=== PATIENT | female | born 1965 | race American Indian/Alaskan Native ===

== ENCOUNTER 2017-08-21 22:52 | Emergency (ER) | payer SELFPAY ==
[2017-08-21] MEDS ORDERED: BENADRYL IV ONE (22:58)
[2017-08-21] MEDS ORDERED: PEPCID IV ONE ×2 (22:58→23:02)
[2017-08-21] MEDS ORDERED: BENADRYL ONE (23:02)
--- NOTE | 2017-08-22 02:45 | Emergency Department Report ---
ED Allergic Reaction HPI - General Chief complaint: Allergic Reaction Stated complaint: ITCHING ALL OVER Time Seen by Provider: 08/22/17 02:08 Source: patient Mode of arrival: Ambulatory Limitations: No Limitations - History of Present Illness Initial Comments: 51-year-old female presents with complaint of sudden hives and some eyelid swelling status post eating Pakistani food/takeout food this evening that had shrimp in it. Patient is awake alert and oriented 3 accompanied by at bedside. States that within the last hours she ate Pakistani food and immediately after eating food she developed hives all over her skin and developed some swelling around her eyes. Patient speaking in full sentences no audible wheezing or stridor. No visible significant lip swelling or tongue swelling. 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 Patient denies any chest pain or throat pain or significant shortness of breath. Has not taken any medicines states she came straight to the hospital for evaluation and treatment. MD Complaint: allergic reaction, hives, facial swelling Onset/Timin -: hour(s) Symptoms: rash, itching, facial swelling (patient states she feels some swelling around her eyelids. Patient's agrees to this.) Severity: mild Treatment Prior to Arrival: none Previous Allergy History: none - Related Data Home Medications Medication Instructions Recorded Confirmed Last Taken traMADol [Ultram] 50 mg PO Q6HR PRN 10/25/16 10/25/16 Unknown Previous Rx's Medication Instructions Recorded Last Taken Type Naproxen [Naprosyn TAB] 500 mg PO BID #30 tablet 01/29/14 Unknown Rx Cetirizine HCl [ZyrTEC] 10 mg PO QDAY #30 capsule 08/22/17 Unknown Rx EPINEPHrine [Epipen] 0.3 mg IJ QDAY PRN #1 auto.injct 08/22/17 Unknown Rx Famotidine [Pepcid] 20 mg PO BID PRN #30 tablet 08/22/17 Unknown Rx diphenhydrAMINE [Benadryl CAP] 25 mg PO Q8HR PRN #30 capsule 08/22/17 Unknown Rx predniSONE [Deltasone] 40 mg PO QDAY #10 tab 08/22/17 Unknown Rx Allergies Allergy/AdvReac Type Severity Reaction Status Date / Time No Known Allergies Allergy Verified 08/21/17 22:56 ED Review of Systems ROS: Stated complaint: ITCHING ALL OVER Other details as noted in HPI Constitutional: denies: chills, fever Eyes: denies: eye pain, eye discharge, vision change ENT: as per HPI. denies: ear pain, throat pain Respiratory: denies: cough, shortness of breath, wheezing Cardiovascular: denies: chest pain, palpitations Endocrine: no symptoms reported Gastrointestinal: denies: abdominal pain, nausea, diarrhea Genitourinary: denies: urgency, dysuria, discharge Musculoskeletal: denies: back pain, joint swelling, arthralgia Skin: denies: rash, lesions Neurological: denies: headache, weakness, paresthesias Psychiatric: denies: anxiety, depression Hematological/Lymphatic: denies: easy bleeding, easy bruising ED Past Medical Hx - Past Medical History Hx GERD: Yes Hx Arthritis: Yes - Surgical History Additional Surgical History: right knee surgery in 1993 - Social History Smoking Status: Current Every Day Smoker - Medications Home Medications: Home Medications Medication Instructions Recorded Confirmed Last Taken Type Naproxen [Naprosyn TAB] 500 mg PO BID #30 tablet 01/29/14 10/25/16 Unknown Rx traMADol [Ultram] 50 mg PO Q6HR PRN 10/25/16 10/25/16 Unknown History Cetirizine HCl [ZyrTEC] 10 mg PO QDAY #30 capsule 08/22/17 Unknown Rx EPINEPHrine [Epipen] 0.3 mg IJ QDAY PRN #1 auto.injct 08/22/17 Unknown Rx Famotidine [Pepcid] 20 mg PO BID PRN #30 tablet 08/22/17 Unknown Rx diphenhydrAMINE [Benadryl CAP] 25 mg PO Q8HR PRN #30 capsule 08/22/17 Unknown Rx predniSONE [Deltasone] 40 mg PO QDAY #10 tab 08/22/17 Unknown Rx ED Physical Exam - General Limitations: No Limitations General appearance: alert, in no apparent distress - Head Head exam: Present: atraumatic, normocephalic - Eye Eye exam: Present: normal appearance, PERRL, EOMI - ENT ENT exam: Present: mucous membranes moist - Expanded ENT Exam Expanded Mouth exam: Present: normal external inspection Teeth exam: Present: normal inspection Throat exam: Positive: normal inspection - Neck Neck exam: Present: normal inspection, full ROM - Respiratory Respiratory exam: Present: normal lung sounds bilaterally. Absent: respiratory distress - Cardiovascular Cardiovascular Exam: Present: regular rate, normal rhythm. Absent: systolic murmur, diastolic murmur, rubs, gallop - GI/Abdominal GI/Abdominal exam: Present: soft, normal bowel sounds - Extremities Exam Extremities exam: Present: normal inspection - Back Exam Back exam: Present: normal inspection - Neurological Exam Neurological exam: Present: alert, oriented X3 - Psychiatric Psychiatric exam: Present: normal affect, normal mood - Skin Skin exam: Present: warm, dry, intact, normal color. Absent: rash ED Course Vital Signs 08/21/17 08/21/17 08/21/17 22:56 23:24 23:31 Temperature 97.9 F Pulse Rate 102 H Respiratory 18 Rate Blood Pressure 126/82 113/67 Blood Pressure [Right] O2 Sat by Pulse 96 95 96 Oximetry 08/21/17 08/22/17 08/22/17 23:45 00:00 00:15 Temperature Pulse Rate Respiratory Rate Blood Pressure 117/75 120/71 120/71 Blood Pressure [Right] O2 Sat by Pulse 96 97 93 Oximetry 08/22/17 08/22/17 08/22/17 00:31 00:45 01:00 Temperature Pulse Rate Respiratory Rate Blood Pressure 124/75 128/81 134/81 Blood Pressure [Right] O2 Sat by Pulse 95 97 95 Oximetry 08/22/17 08/22/17 08/22/17 01:15 01:31 01:45 Temperature Pulse Rate Respiratory Rate Blood Pressure 134/81 130/80 121/78 Blood Pressure [Right] O2 Sat by Pulse 89 90 94 Oximetry 08/22/17 08/22/17 08/22/17 02:00 02:15 02:31 Temperature Pulse Rate Respiratory Rate Blood Pressure 136/79 136/79 142/81 Blood Pressure [Right] O2 Sat by Pulse 94 95 93 Oximetry 08/22/17 08/22/17 02:45 03:05 Temperature Pulse Rate 82 Respiratory 16 Rate Blood Pressure 134/78 Blood Pressure 132/78 [Right] O2 Sat by Pulse 94 97 Oximetry ED Medical Decision Making - Medical Decision Making A/P: Allergic reaction, hives 1-patient has now been observed for several hours with significant improvement of her clinical symptoms and almost complete dissipation of hives. Will prescribe patient course of prednisone, Benadryl when necessary, course of Zyrtec, Pepcid when necessary for hives 2-EpiPen when necessary for any angioedema. I educated patient on signs and symptoms of angioedema and anaphylaxis. 3-vital signs stable before discharge 4-I advised patient to refrain from contact with the type of food that she ate this evening. No clinical signs of angioedema tongue swelling no significant lip swelling. significant reduction of patient's symptoms with antihistamines and steroids. patient speaking in full sentences no trismus no stridor no drooling. i gave patient specific instructions to return to the ed [facility] and to use epipen for any emergent tongue swelling significant difficulty breathing or severe allergic reaction. patient has had near complete resolution of hives around face m and is in abdomen. speaking in full sentences no audible wheezing or stridor. it is likely patient's allergic reaction was induced by danish food she states had shrimp in it which she has had allergic reactions to in the past. I referred patient to allergy clinic and advised her to follow up as soon as possible. I also advised her to follow up with her primary care doctor. Critical care attestation.: If time is entered above; I have spent that time in minutes in the direct care of this critically ill patient, excluding procedure time. ED Disposition Clinical Impression: Hives Allergic reaction Qualifiers: Encounter type: initial encounter Qualified Code(s): T78.40XA - Allergy, unspecified, initial encounter Disposition: TO HOME OR SELFCARE Is pt being admited?: No Does the pt Need Aspirin: No Condition: Stable Instructions: Epinephrine (Injection), Urticaria (ED), Food Allergy (ED) Prescriptions: Cetirizine HCl [ZyrTEC] 10 mg PO QDAY #30 capsule diphenhydrAMINE [Benadryl CAP] 25 mg PO Q8HR PRN #30 capsule PRN Reason: Allergic Reaction EPINEPHrine [Epipen] 0.3 mg IJ QDAY PRN #1 auto.injct PRN Reason: Angioedema Famotidine [Pepcid] 20 mg PO BID PRN #30 tablet PRN Reason: Allergic Reaction predniSONE [Deltasone] 40 mg PO QDAY #10 tab Referrals: [facility] [Provider Group] - 3-5 Days Forms: Accompanied Note, Work/School Release Form(ED) Time of Disposition: 02:43
[2017-08-22 03:06] VITALS: BP 132/78
== END 2017-08-22 03:05 | disposition home or self-care (01) ==
LOC: ED 22:52
DX: T78.40XA Allergy, unspecified, initial encounter (principal); L50.9 Urticaria, unspecified; K21.9 Gastro-esophageal reflux disease without esophagitis; M19.90 Unspecified osteoarthritis, unspecified site; F17.200 Nicotine dependence, unspecified, uncomplicated
CPT/HCPCS: 96374; 96375; 99282; J1200; J2930

== ENCOUNTER 2019-01-27 09:36 | Observation (INO) | payer OTHER ==
[2019-01-27] MEDS ORDERED: ASPIRIN PO ONE (10:10)
--- NOTE | 2019-01-27 10:37 | XRay Report ---
AP CHEST: HISTORY: chest pain AP view of the chest demonstrates a normal mediastinal and cardiac contour with clear lungs and normal bony and soft tissue structures. IMPRESSION: Unremarkable AP chest.
[2019-01-27 11:38] LABS: Basophils # (Auto) 0.1 K/mm3 (0.0-0.1); Basophils % (Auto) 0.6 % (0.0-1.8); Eosinophils # (Auto) 0.1 K/mm3 (0.0-0.4); Hemoglobin 14.3 gm/dl (10.1-14.3); Lymphocytes # (Auto) 2.9 K/mm3 (1.2-5.4); Lymphocytes % (Auto) 31.2 % (13.4-35.0); Mean Corpuscular HGB Conc 33 % (30-34); Mean Corpuscular Volume 90 fl (79-97); Monocytes # (Auto) 0.6 K/mm3 (0.0-0.8); Monocytes % (Auto) 6.3 % (0.0-7.3); Platelet Count 308 K/mm3 (140-440); Red Cell Distribution Width 14.9 % (13.2-15.2)
[2019-01-27 11:47] LABS: BUN/Creatinine Ratio 19; Blood Urea Nitrogen 13 mg/dL (7-17); Calcium 8.9 mg/dL (8.4-10.2); Hemolysis Index 5
[2019-01-27 13:57] LABS: INR 0.91 (0.87-1.13)
[2019-01-27 13:58] LABS: Partial Thromboplastin Time 34.1 Sec. (24.2-36.6)
--- NOTE | 2019-01-27 14:22 | Emergency Department Report ---
ED Chest Pain HPI - General Chief Complaint: Chest Pain Stated Complaint: CHEST PAIN/RAPID HEART RATE Time Seen by Provider: 01/27/19 11:13 Source: patient Mode of arrival: Ambulatory Limitations: No Limitations - History of Present Illness Initial Comments: 53-year-old female complains of heaviness in the right and substernal area of her anterior chest. It does not radiate. She states that she has a history of GERD but that this is different. She's had no prior workup for chest pain or hospitalization. She presents with an elevated blood pressure. She states that she does not have diabetes or hyperlipidemia. He has a history of arthritis. S he states that she has had intermittent chest pressure for the last several days. It is sometimes associated with shortness of breath sometimes not. She states the episodes are generally 10 minutes in duration and not necessarily associated with exertion. -: week(s) Onset: during rest Pain Location: substernal, right chest Pain Radiation: none Severity: moderate Quality: heaviness Consistency: intermittent Improves With: nothing Worsens With: nothing re: dyspnea. denies: nausea, vomting, diaphoresis Other Symptoms: denies: cough, fever, syncope Treatments Prior to Arrival: none - Related Data Home Medications Medication Instructions Recorded Confirmed Last Taken traMADol [Ultram] 50 mg PO Q6HR PRN 10/25/16 10/25/16 Unknown Previous Rx's Medication Instructions Recorded Last Taken Type Naproxen [Naprosyn TAB] 500 mg PO BID #30 tablet 01/29/14 Unknown Rx Cetirizine HCl [ZyrTEC] 10 mg PO QDAY #30 capsule 08/22/17 Unknown Rx EPINEPHrine [Epipen] 0.3 mg IJ QDAY PRN #1 auto.injct 08/22/17 Unknown Rx Famotidine [Pepcid] 20 mg PO BID PRN #30 tablet 08/22/17 Unknown Rx diphenhydrAMINE [Benadryl CAP] 25 mg PO Q8HR PRN #30 capsule 08/22/17 Unknown Rx predniSONE [Deltasone] 40 mg PO QDAY #10 tab 08/22/17 Unknown Rx Allergies Allergy/AdvReac Type Severity Reaction Status Date / Time No Known Allergies Allergy Verified 08/21/17 22:56 Heart Score - HEART Score History: Moderately suspicious EKG: Non-specific Age: 45-65 Risk factors: > 3 risk factors or hx of atherosclerotic disease Troponin: < normal limit HEART Score: 5 - Critical Actions Critical Actions: 4-6 pts:12-16.6% risk of adverse cardiac event. Should be admitted ED Review of Systems ROS: Stated complaint: CHEST PAIN/RAPID HEART RATE Other details as noted in HPI Constitutional: denies: chills, fever Eyes: denies: eye pain, eye discharge, vision change ENT: denies: ear pain, throat pain Respiratory: shortness of breath. denies: cough, wheezing Cardiovascular: chest pain. denies: palpitations Endocrine: no symptoms reported Gastrointestinal: denies: abdominal pain, nausea, diarrhea Genitourinary: denies: urgency, dysuria, discharge Musculoskeletal: denies: back pain, joint swelling, arthralgia Skin: denies: rash, lesions Neurological: denies: headache, weakness, paresthesias Psychiatric: denies: anxiety, depression Hematological/Lymphatic: denies: easy bleeding, easy bruising ED Past Medical Hx - Past Medical History Previous Medical History?: Yes Hx GERD: Yes Hx Arthritis: Yes - Surgical History Past Surgical History?: Yes Additional Surgical History: right knee surgery in 1993 - Social History Smoking Status: Current Every Day Smoker Substance Use Type: None - Medications Home Medications: Home Medications Medication Instructions Recorded Confirmed Last Taken Type Naproxen [Naprosyn TAB] 500 mg PO BID #30 tablet 01/29/14 10/25/16 Unknown Rx traMADol [Ultram] 50 mg PO Q6HR PRN 10/25/16 10/25/16 Unknown History Cetirizine HCl [ZyrTEC] 10 mg PO QDAY #30 capsule 08/22/17 Unknown Rx EPINEPHrine [Epipen] 0.3 mg IJ QDAY PRN #1 auto.injct 08/22/17 Unknown Rx Famotidine [Pepcid] 20 mg PO BID PRN #30 tablet 08/22/17 Unknown Rx diphenhydrAMINE [Benadryl CAP] 25 mg PO Q8HR PRN #30 capsule 08/22/17 Unknown Rx predniSONE [Deltasone] 40 mg PO QDAY #10 tab 08/22/17 Unknown Rx ED Physical Exam - General Limitations: No Limitations General appearance: alert, in no apparent distress - Head Head exam: Present: atraumatic, normocephalic - Eye Eye exam: Present: normal appearance. Absent: scleral icterus - ENT ENT exam: Present: mucous membranes moist - Neck Neck exam: Present: normal inspection - Respiratory Respiratory exam: Present: normal lung sounds bilaterally. Absent: respiratory distress - Cardiovascular Cardiovascular Exam: Present: regular rate, normal rhythm. Absent: systolic murmur, diastolic murmur, rubs, gallop - GI/Abdominal GI/Abdominal exam: Present: soft, normal bowel sounds. Absent: distended, tenderness, guarding, rebound, rigid - Extremities Exam Extremities exam: Present: normal inspection - Back Exam Back exam: Present: normal inspection - Neurological Exam Neurological exam: Present: alert, oriented X3, CN II-XII intact. Absent: motor sensory deficit - Psychiatric Psychiatric exam: Present: normal affect, normal mood - Skin Skin exam: Present: warm, dry, intact, normal color. Absent: rash ED Course Vital Signs 01/27/19 01/27/19 01/27/19 10:06 11:13 11:15 Temperature 98.3 F Pulse Rate 88 72 71 Respiratory 16 14 19 Rate Blood Pressure 156/87 156/83 O2 Sat by Pulse 95 99 95 Oximetry 01/27/19 01/27/19 01/27/19 11:27 11:30 11:45 Temperature 97.8 F Pulse Rate 69 81 Respiratory 16 11 L Rate Blood Pressure 149/81 155/81 O2 Sat by Pulse 94 93 Oximetry 01/27/19 01/27/19 01/27/19 12:00 12:15 12:29 Temperature Pulse Rate 72 83 Respiratory 16 16 20 Rate Blood Pressure 162/96 150/80 O2 Sat by Pulse 95 92 100 Oximetry - Reevaluation(s) Reevaluation #1: Patient remained stable and comfortable in the emergency department. Her d- dimer is 299. The chest pain is somewhat atypical. We will proceed with CTA. Patient is admitted by Dr. Day to the hospitalist service further care and evaluation. 01/27/19 14:43 ANTONIO score - Antonio Score Age > 65: (0) No Aspirin use within the Past 7 Days: (0) No 3 or more CAD Risk Factors: (0) No 2 or more Angina events in past 24 hrs: (0) No Known CAD with more than 50% Stenosis: (0) No Elevated Cardiac Markers: (0) No ST Deviation Greater than 0.5mm: (1) Yes ANTONIO Score: 1 ED Medical Decision Making - Lab Data Result diagrams: 01/27/19 11:16 01/27/19 11:16 Laboratory Results - last 24 hr 01/27/19 01/27/19 01/27/19 11:16 11:16 13:30 WBC 9.3 RBC 4.80 Hgb 14.3 Hct 43.0 H MCV 90 MCH 30 MCHC 33 RDW 14.9 Plt Count 308 Lymph % (Auto) 31.2 Quay % (Auto) 6.3 Eos % (Auto) 1.0 Baso % (Auto) 0.6 Lymph # 2.9 Quay # 0.6 Eos # 0.1 Baso # 0.1 Seg Neutrophils % 60.9 Seg Neutrophils # 5.7 PT 12.8 INR 0.91 APTT 34.1 D-Dimer 299.46 H Sodium 140 Potassium 4.4 Chloride 103.0 Carbon Dioxide 27 Anion Gap 14 BUN 13 Creatinine 0.7 Estimated GFR > 60 BUN/Creatinine Ratio 19 Glucose 83 Calcium 8.9 Total Bilirubin AST ALT Alkaline Phosphatase Troponin T < 0.010 Total Protein Albumin Albumin/Globulin Ratio 01/27/19 01/27/19 13:30 13:32 WBC RBC Hgb Hct MCV MCH MCHC RDW Plt Count Lymph % (Auto) Quay % (Auto) Eos % (Auto) Baso % (Auto) Lymph # Quay # Eos # Baso # Seg Neutrophils % Seg Neutrophils # PT INR APTT D-Dimer Sodium Potassium Chloride Carbon Dioxide Anion Gap BUN Creatinine Estimated GFR BUN/Creatinine Ratio Glucose Calcium Total Bilirubin 0.20 AST 14 ALT 9 Alkaline Phosphatase 86 Troponin T < 0.010 Total Protein 6.8 Albumin 3.8 L Albumin/Globulin Ratio 1.3 - EKG Data -: EKG Interpreted by Or EKG shows normal: sinus rhythm Rate: normal - EKG Data Interpretation: other (left axis deviation right and left atrial enlargement, there is mild ST depression noted in V4 through V6. There is substantially poor precordial R-wave progression. Previous zone can be considered/PRWP.) - Radiology Data Radiology results: report reviewed (chest x-ray no acute process) Critical care attestation.: If time is entered above; I have spent that time in minutes in the direct care of this critically ill patient, excluding procedure time. ED Disposition Clinical Impression: Elevated d-dimer Chest pain Qualifiers: Chest pain type: unspecified Qualified Code(s): R07.9 - Chest pain, unspecified Disposition: DC-09 OP ADMIT IP TO THIS HOSP Is pt being admited?: Yes Does the pt Need Aspirin: Yes Condition: Stable Instructions: Chest Pain (ED) Referrals: BEAU HINES MD [Primary Care Provider] - 3-5 Days Time of Disposition: 15:06
[2019-01-27 14:39] LABS: Alanine Aminotransferase 9 units/L (7-56); Albumin 3.8 g/dL (3.9-5)
[2019-01-27 14:40] LABS: Bilirubin,Direct < 0.2 mg/dL (0-0.2)
--- NOTE | 2019-01-27 15:42 | Cat Scan Report ---
CTA CHEST: HISTORY: Right sided chest pain. COMPARISON: none. TECHNIQUE: Helical CT in 1.25mm intervals following IV contrast. Pulmonary embolus protocol. Sagittal and coronal reformatted images. Rotational MIP images. FINDINGS: Contrast bolus is satisfactory. No pulmonary embolus is identified. Thyroid gland: Normal. Tracheobronchial tree: Normal. Esophagus: Normal. Heart: Normal. Pericardium: Normal. Mediastinum: Normal. Lung Ferguson: Normal. Pleural Spaces: Normal. Musculoskeletal: Normal. IMPRESSION: No evidence for pulmonary embolus. Unremarkable CT chest with contrast.
--- NOTE | 2019-01-27 19:38 | History and Physical Report ---
History of Present Illness Date of examination: 01/27/19 Date of admission: 01/27/2019 Chief complaint: Chest pain for 1 week History of present illness: 53-year-old female with history of gastroesophageal disease, allergy rhinitis and arthritis, status post left TKA comes in for chest pain of one-day duration. Chest pain his left precordial region and substernal region. Nonradiating. Intermittent in nature. Sometimes associated with palpitations. No exacerba ting or relieving factors. No diaphoresis. These episodes last about 10 minutes. No recent travel. No fever or chills. Past Medical History Previous Medical History?: Yes Hx GERD: Yes Hx Arthritis: Yes Surgical History Past Surgical History?: Yes Additional Surgical History: Left knee surgery in 1993--TKA Social History Smoking Status: Current Every Day Smoker--one fourth pack a day Substance Use Type: None - Review of Systems ROS: Stated complaint: CHEST PAIN/RAPID HEART RATE Other details as noted in HPI Constitutional: denies: chills, fever Eyes: denies: eye pain, eye discharge, vision change ENT: denies: ear pain, throat pain Respiratory: shortness of breath. denies: cough, wheezing Cardiovascular: chest pain. denies: palpitations Endocrine: no symptoms reported Gastrointestinal: denies: abdominal pain, nausea, diarrhea Genitourinary: denies: urgency, dysuria, discharge Musculoskeletal: denies: back pain, joint swelling, arthralgia Skin: denies: rash, lesions Neurological: denies: headache, weakness, paresthesias Psychiatric: denies: anxiety, depression Hematological/Lymphatic: denies: easy bleeding, easy bruising Medications and Allergies Allergies Allergy/AdvReac Type Severity Reaction Status Date / Time No Known Allergies Allergy Verified 08/21/17 22:56 Home Medications Medication Instructions Recorded Confirmed Last Taken Type Naproxen [Naprosyn TAB] 500 mg PO BID #30 tablet 01/29/14 10/25/16 Unknown Rx traMADol [Ultram] 50 mg PO Q6HR PRN 10/25/16 10/25/16 Unknown History Cetirizine HCl [ZyrTEC] 10 mg PO QDAY #30 capsule 08/22/17 Unknown Rx EPINEPHrine [Epipen] 0.3 mg IJ QDAY PRN #1 auto.injct 08/22/17 Unknown Rx Famotidine [Pepcid] 20 mg PO BID PRN #30 tablet 08/22/17 Unknown Rx diphenhydrAMINE [Benadryl CAP] 25 mg PO Q8HR PRN #30 capsule 08/22/17 Unknown Rx predniSONE [Deltasone] 40 mg PO QDAY #10 tab 08/22/17 Unknown Rx Exam - Physical Exam Narrative exam: Middle-aged female lying in bed comfortably - Constitutional Vitals: Temp Pulse Resp BP Pulse Ox 97.8 F 86 22 139/119 96 01/27/19 11:27 01/27/19 15:00 01/27/19 15:00 01/27/19 16:45 01/27/19 16:45 General appearance: Present: no acute distress, well-nourished - EENT Eyes: Present: PERRL ENT: hearing intact, clear oral mucosa - Neck Neck: Present: supple, normal ROM - Respiratory Respiratory effort: normal Respiratory: bilateral: CTA - Cardiovascular Heart rate: 86 Rhythm: regular Heart Sounds: Present: S1 & S2. Absent: rub, click - Extremities Extremities: no ischemia, pulses intact, pulses symmetrical, No edema Peripheral Pulses: within normal limits - Abdominal General gastrointestinal: Present: soft, non-tender, non-distended, normal bowel sounds Female genitourinary: Present: normal - Integumentary Integumentary: Present: clear, warm, dry - Musculoskeletal Musculoskeletal: gait normal, strength equal bilaterally - Psychiatric Psychiatric: appropriate mood/affect, intact judgment & insight - Neurologic Neurologic: CNII-XII intact, moves all extremities - Allied Health Allied health notes reviewed: nursing, case management Results - Labs CBC & Chem 7: 01/27/19 11:16 01/27/19 11:16 Labs: Laboratory Last Values WBC 9.3 K/mm3 (4.5-11.0) 01/27/19 11:16 RBC 4.80 M/mm3 (3.65-5.03) 01/27/19 11:16 Hgb 14.3 gm/dl (10.1-14.3) 01/27/19 11:16 Hct 43.0 % (30.3-42.9) H 01/27/19 11:16 MCV 90 fl (79-97) 01/27/19 11:16 MCH 30 pg (28-32) 01/27/19 11:16 MCHC 33 % (30-34) 01/27/19 11:16 RDW 14.9 % (13.2-15.2) 01/27/19 11:16 Plt Count 308 K/mm3 (140-440) 01/27/19 11:16 Lymph % (Auto) 31.2 % (13.4-35.0) 01/27/19 11:16 Bennett % (Auto) 6.3 % (0.0-7.3) 01/27/19 11:16 Eos % (Auto) 1.0 % (0.0-4.3) 01/27/19 11:16 Baso % (Auto) 0.6 % (0.0-1.8) 01/27/19 11:16 Lymph # 2.9 K/mm3 (1.2-5.4) 01/27/19 11:16 Bennett # 0.6 K/mm3 (0.0-0.8) 01/27/19 11:16 Eos # 0.1 K/mm3 (0.0-0.4) 01/27/19 11:16 Baso # 0.1 K/mm3 (0.0-0.1) 01/27/19 11:16 Seg Neutrophils % 60.9 % (40.0-70.0) 01/27/19 11:16 Seg Neutrophils # 5.7 K/mm3 (1.8-7.7) 01/27/19 11:16 PT 12.8 Sec. (12.2-14.9) 01/27/19 13:30 INR 0.91 (0.87-1.13) 01/27/19 13:30 APTT 34.1 Sec. (24.2-36.6) 01/27/19 13:30 299.46 ng/mlDDU (0-234) H 01/27/19 13:30 Sodium 140 mmol/L (137-145) 01/27/19 11:16 Potassium 4.4 mmol/L (3.6-5.0) 01/27/19 11:16 Chloride 103.0 mmol/L (98-107) 01/27/19 11:16 Carbon Dioxide 27 mmol/L (22-30) 01/27/19 11:16 14 mmol/L 01/27/19 11:16 BUN 13 mg/dL (7-17) 01/27/19 11:16 0.7 mg/dL (0.7-1.2) 01/27/19 11:16 Estimated GFR > 60 ml/min 01/27/19 11:16 19 % 01/27/19 11:16 Glucose 83 mg/dL (65-100) 01/27/19 11:16 Calcium 8.9 mg/dL (8.4-10.2) 01/27/19 11:16 0.20 mg/dL (0.1-1.2) 01/27/19 13:30 < 0.2 mg/dL (0-0.2) 01/27/19 13:30 0.0 mg/dL 01/27/19 13:30 AST 14 units/L (5-40) 01/27/19 13:30 ALT 9 units/L (7-56) 01/27/19 13:30 86 units/L (35-129) 01/27/19 13:30 < 0.010 ng/mL (0.00-0.029) 01/27/19 15:45 6.8 g/dL (6.3-8.2) 01/27/19 13:30 3.8 g/dL (3.9-5) L 01/27/19 13:30 1.3 % 01/27/19 13:30 Short CBC 01/27/19 Range/Units 11:16 WBC 9.3 (4.5-11.0) K/mm3 Hgb 14.3 (10.1-14.3) gm/dl Hct 43.0 H (30.3-42.9) % Plt Count 308 (140-440) K/mm3 BMP 01/27/19 11:16 Sodium 140 Potassium 4.4 Chloride 103.0 Carbon Dioxide 27 BUN 13 Creatinine 0.7 Glucose 83 Calcium 8.9 Cardiac Enzymes 01/27/19 01/27/19 01/27/19 Range/Units 11:16 13:32 15:45 Troponin T < 0.010 < 0.010 < 0.010 (0.00-0.029) ng/mL Liver Function 01/27/19 Range/Units 13:30 Total Bilirubin 0.20 (0.1-1.2) mg/dL Direct Bilirubin < 0.2 (0-0.2) mg/dL AST 14 (5-40) units/L ALT 9 (7-56) units/L Alkaline Phosphatase 86 (35-129) units/L Albumin 3.8 L (3.9-5) g/dL - Imaging and Cardiology EKG: report reviewed (normal sinus rhythm heart rate of 86/m ventricular premature complexes left atrial enlargement and nonspecific ST-T wave changes) Chest x-ray: report reviewed Imaging and Cardiology: CTA chest IMPRESSION: No evidence for pulmonary embolus. Unremarkable CT chest with contrast. Chest x-ray IMPRESSION: Unremarkable AP chest. Assessment and Plan Advance Directives: Yes (full code) VTE prophylaxis?: Chemical Plan of care discussed with patient/family: Yes - Patient Problems (1) Chest pain Current Visit: Yes Status: Acute Qualifiers: Chest pain type: unspecified Qualified Code(s): R07.9 - Chest pain, unspecified Plan to address problem: Chest pain rule out DC protocol Serial troponins Exercise treadmill/Lexiscan in the morning GERD and costochondritis and differential diagnosis Patient already has GERD and is on famotidine (2) Allergic rhinitis Current Visit: Yes Status: Chronic Qualifiers: Allergic rhinitis trigger: unspecified Plan to address problem: Continue Zyrtec (3) GERD (gastroesophageal reflux disease) Current Visit: Yes Status: Chronic Qualifiers: Esophagitis presence: with esophagitis Qualified Code(s): K21.0 - Gastro- esophageal reflux disease with esophagitis Plan to address problem: Continue famotidine (4) Arthritis Current Visit: Yes Status: Chronic Plan to address problem: Continue tramadol No NSAIDS because of Gerd (5) DVT prophylaxis Current Visit: Yes Status: Acute Plan to address problem: On Lovenox and GI prophylaxis
[2019-01-27] MEDS ORDERED: PEPCID PO PRN (19:42)
[2019-01-27] MEDS ORDERED: TYLENOL PO PRN (19:43)
[2019-01-27] MEDS ORDERED: SODIUM CHLORIDE FLUSH SYRINGE 10 ML IV PRN (19:43)
[2019-01-27] MEDS ORDERED: MORPHINE IV PRN (19:43)
[2019-01-27] MEDS ORDERED: ZOFRAN IV PRN (19:43)
[2019-01-27] MEDS ORDERED: NON-FORMULARY (Cetirizine Hcl [Zyrtec] 10 MG) PO SCH (19:45)
[2019-01-27] MEDS ORDERED: ULTRAM PO PRN (20:16)
[2019-01-27] MEDS: SODIUM CHLORIDE FLUSH SYRINGE 10 ML IV SCH (22:40)
[2019-01-27] MEDS: LOVENOX SUB-Q SCH (22:40)
[2019-01-28 06:30] LABS: Basophils # (Auto) 0.1 K/mm3 (0.0-0.1); Basophils % (Auto) 0.6 % (0.0-1.8); Eosinophils # (Auto) 0.1 K/mm3 (0.0-0.4); Eosinophils % (Auto) 1.5 % (0.0-4.3); Hematocrit 42.5 % (30.3-42.9); Hemoglobin 13.8 gm/dl (10.1-14.3); Lymphocytes # (Auto) 2.9 K/mm3 (1.2-5.4); Lymphocytes % (Auto) 33.5 % (13.4-35.0); Mean Corpuscular HGB Conc 32 % (30-34); Mean Corpuscular Volume 90 fl (79-97); Monocytes # (Auto) 0.6 K/mm3 (0.0-0.8); Monocytes % (Auto) 6.7 % (0.0-7.3); Platelet Count 297 K/mm3 (140-440); Red Blood Count 4.73 M/mm3 (3.65-5.03); Red Cell Distribution Width 14.9 % (13.2-15.2)
[2019-01-28 06:56] LABS: Alanine Aminotransferase 10 units/L (7-56); Albumin 3.8 g/dL (3.9-5); BUN/Creatinine Ratio 20; Blood Urea Nitrogen 14 mg/dL (7-17); Calcium 8.5 mg/dL (8.4-10.2); Hemolysis Index 5
[2019-01-28] MEDS: LOVENOX SUB-Q SCH (10:02)
[2019-01-28] MEDS: CLARITIN PO SCH (10:02)
[2019-01-28] MEDS: SODIUM CHLORIDE FLUSH SYRINGE 10 ML IV SCH (10:04)
--- NOTE | 2019-01-28 11:48 | Consultation ---
History of Present Illness Consult date: 01/28/19 Requesting physician: ANDRADE GHOTRA Consult reason: chest pain History of present illness: The pt is a 53 YO female with a past medical history of SVT, TKR in 2017 (takes 3 Alleve tablets every morning), and tobacco use. She does not regularly see a floorwalker. She presented with complaints of chest pain and intermittent palpitations since Sunday. She describes her chest pain as a midsternal tightness and soreness which is highly reproducible with palpation of the sternum. She denies any SOB, n/v, diaphoresis, dizziness or syncope. Of note, pt was seen in ED in 10/2016 with c/o palpitations. She was found to have SVT and was converted with IV Adenosine. She was discharged in stable condition. She did not follow up with any cardiologists at that time due to lack of insurance. Past History Past Medical History: other (SVT) Past Surgical History: Other (TKR in 2016) Social history: denies: smoking, alcohol abuse, prescription drug abuse Medications and Allergies Allergies Allergy/AdvReac Type Severity Reaction Status Date / Time No Known Allergies Allergy Verified 08/21/17 22:56 Home Medications Medication Instructions Recorded Confirmed Last Taken Type Naproxen [Naprosyn TAB] 500 mg PO BID #30 tablet 01/29/14 10/25/16 Unknown Rx traMADol [Ultram] 50 mg PO Q6HR PRN 10/25/16 10/25/16 Unknown History Cetirizine HCl [ZyrTEC] 10 mg PO QDAY #30 capsule 08/22/17 Unknown Rx EPINEPHrine [Epipen] 0.3 mg IJ QDAY PRN #1 auto.injct 08/22/17 Unknown Rx Famotidine [Pepcid] 20 mg PO BID PRN #30 tablet 08/22/17 Unknown Rx diphenhydrAMINE [Benadryl CAP] 25 mg PO Q8HR PRN #30 capsule 08/22/17 Unknown Rx predniSONE [Deltasone] 40 mg PO QDAY #10 tab 08/22/17 Unknown Rx Naproxen Sodium [Aleve] 220 mg PO BID PRN 01/28/19 01/28/19 Unknown History Active Meds: Active Medications Acetaminophen (Tylenol) 650 mg PO Q4H PRN PRN Reason: Pain MILD(1-3)/Fever >100.5/CLARK Enoxaparin Sodium (Lovenox) 40 mg SUB-Q QDAY [facility] Last Admin: 01/28/19 10:02 Dose: 40 mg Documented by: Famotidine (Pepcid) 20 mg PO BID PRN PRN Reason: Allergic Reaction Loratadine (Claritin) 10 mg PO DAILY [facility] Last Admin: 01/28/19 10:02 Dose: 10 mg Documented by: Morphine Sulfate (Morphine) 2 mg IV Q4H PRN PRN Reason: Pain, Moderate (4-6) Ondansetron HCl (Zofran) 4 mg IV Q8H PRN PRN Reason: Nausea And Vomiting Sodium Chloride (Sodium Chloride Flush Syringe 10 Ml) 10 ml IV BID [facility] Last Admin: 01/28/19 10:04 Dose: 10 ml Documented by: Sodium Chloride (Sodium Chloride Flush Syringe 10 Ml) 10 ml IV PRN PRN PRN Reason: LINE FLUSH Tramadol HCl (Ultram) 50 mg PO Q6H PRN PRN Reason: Pain, Moderate (4-6) Last Admin: 01/28/19 10:02 Dose: 50 mg Documented by: Review of Systems Constitutional: no weight loss, no weight gain, no fever, no chills, no sweats Ears, nose, mouth and throat: no ear pain, no nose pain, no sinus pressure, no sinus pain Cardiovascular: chest pain, palpitations, no orthopnea, no edema, no syncope, no shortness of breath, no dyspnea on exertion, no high blood pressure Respiratory: no cough, no shortness of breath, no dyspnea on exertion, no congestion, no wheezing, no pain on inspiration Gastrointestinal: no abdominal pain, no nausea, no vomiting, no diarrhea, no constipation, no change in bowel habits Genitourinary Female: no pelvic pain, no flank pain, no dysuria, no urinary frequency, no urgency Musculoskeletal: no neck stiffness, no neck pain, no shooting arm pain, no arm numbness/tingling, no low back pain, no shooting leg pain Integumentary: no rash, no pruritis, no redness, no sores, no wounds Neurological: no head injury, no paralysis, no weakness, no parathesias, no numbness, no tingling Psychiatric: no anxiety Endocrine: no cold intolerance, no heat intolerance Hematologic/Lymphatic: no easy bruising, no easy bleeding Allergic/Immunologic: no urticaria, no wheezing Physical Examination Vital Signs Temp Pulse Resp BP Pulse Ox 98.3 F 88 16 156/87 95 01/27/19 10:06 01/27/19 10:06 01/27/19 10:06 01/27/19 10:06 01/27/19 10:06 General appearance: no acute distress HEENT: Positive: PERRL, Normocephaly, Mucus Membranes Moist Neck: Positive: neck supple, trachea midline Cardiac: Positive: Reg Rate and Rhythm, S1/S2 Lungs: Positive: clear to auscultation Neuro: Positive: Grossly Intact Abdomen: Positive: Soft. Negative: Tender Skin: Negative: Rash, Wound Musculoskeletal: No Pain Extremities: Absent: edema Results 01/28/19 05:01/28/19 05:19 Cardiac Enzymes 01/27/19 01/28/19 Range/Units 13:30 05: AST 14 12 (5-40) units/L Coagulation 01/27/19 Range/Units 13:30 PT 12.8 (12.2-14.9) Sec. INR 0.91 (0.87-1.13) APTT 34.1 (24.2-36.6) Sec. CBC 01/27/19 01/28/19 Range/Units 11:16 05:19 WBC 9.3 8.8 (4.5-11.0) K/mm3 RBC 4.80 4.73 (3.65-5.03) M/mm3 Hgb 14.3 13.8 (10.1-14.3) gm/dl Hct 43.0 H 42.5 (30.3-42.9) % Plt Count 308 297 (140-440) K/mm3 Lymph # 2.9 2.9 (1.2-5.4) K/mm3 [place] # 0.6 (0.0-0.8) K/mm3 Eos # 0.1 (0.0-0.4) K/mm3 Baso # 0.1 (0.0-0.1) K/mm3 Comprehensive Metabolic Panel 01/27/19 01/27/19 01/28/19 Range/Units 11:16 13:30 05:19 Sodium 140 143 (137-145) mmol/L Potassium 4.4 4.4 (3.6-5.0) mmol/L Chloride 103.0 106.5 (98-107) mmol/L Carbon Dioxide 27 26 (22-30) mmol/L BUN 13 14 (7-17) mg/dL Creatinine 0.7 0.7 (0.7-1.2) mg/dL Glucose 83 105 H (65-100) mg/dL Calcium 8.9 8.5 (8.4-10.2) mg/dL Direct Bilirubin < 0.2 (0-0.2) mg/dL Indirect Bilirubin 0.0 mg/dL AST 14 12 (5-40) units/L ALT 9 10 (7-56) units/L Alkaline Phosphatase 86 82 (35-129) units/L Total Protein 6.8 6.6 (6.3-8.2) g/dL Albumin 3.8 L 3.8 L (3.9-5) g/dL - Imaging and Cardiology Echo: pending EKG: report reviewed, image reviewed EKG interpretations - Telemetry EKG Rhythm: Sinus Rhythm - EKG Sinus rhythms and dysrhythmias: sinus rhythm Assessment and Plan DDimer elevated - chest CTA negative for PE. AMI ruled out. Chest pain is highly reproducible with palpation of the sternum. Pt was scheduled for stress test today but ate breakfast so will plan to proceed with lexiscan MPI stress test in AM. NPO after MN. F/u echo. The patient has been seen in conjunction with Dr. Perera who agrees with the assessment and plan of care. - Patient Problems (1) Chest pain Current Visit: Yes Status: Acute Qualifiers: Chest pain type: unspecified Qualified Code(s): R07.9 - Chest pain, unspecified (2) Palpitations Current Visit: Yes Status: Acute (3) History of supraventricular tachycardia Current Visit: Yes Status: Chronic (4) Tobacco use Current Visit: Yes Status: Chronic
--- NOTE | 2019-01-28 16:45 | Progress Note ---
Assessment and Plan /Chest pain admitted to rule out PR Serial troponins Exercise treadmill/Lexiscan in the morning GERD and costochondritis and differential diagnosis Patient already has GERD and is on famotidine /Allergic rhinitis Continue Zyrtec /GERD (gastroesophageal reflux disease) Continue famotidine / Arthritis Continue tramadol No NSAIDS because of Gerd / DVT prophylaxis On Lovenox and GI prophylaxis Brief History: 53-year-old female with history of gastroesophageal disease, allergy rhinitis and arthritis, status post left TKA comes in for chest pain of one-day duration. Radiological data: CTA chest IMPRESSION: No evidence for pulmonary embolus. Unremarkable CT chest with contrast. Chest x-ray IMPRESSION: Unremarkable AP chest. Hospitalist Physical exam: GENERAL: well-developed and morbidly obese -[place] female lying on bed appeared to be in no discomfort. HEENT: Normocephalic. Atraumatic. No conjunctival congestion or icterus. Patient has moist mucous membranes. NECK: Supple. Trachea midline. CHEST/LUNGS: Clear to auscultated bilaterally, breathing nonlabored. No wheezes crackles or rhonchi. HEART/CARDIOVASCULAR: Regular in rate and rhythm. S1 and S2 positive. ABDOMEN: Abdomen is soft, nontender. Patient has normal bowel sounds. SKIN: There is no rash. Warm and dry. NEURO: No focal motor deficit. Follows command. MUSCULOSKELETAL: No joint effusion or tenderness. EXTRIMITY: No edema, no cyanosis or clubbing. PSYCH: Cooperative. Subjective Date of service: 01/28/19 Interval history: Patient seen and examined. Medical records and medication list reviewed. No acute event overnight noted by the RN. Patient continued to complain some intermittent chest pain, denies any difficulty breathing. Patient is tolerating diet. Discussed plan of care at bedside with patient. Stress test was canceled today as she ate a breakfast in the morning, reschedule stress test for tomorrow a.m. Objective - Constitutional Vitals: Vital Signs - 12hr 01/28/19 01/28/19 08:44 10:02 Temperature 97.7 F Pulse Rate 76 Respiratory 18 18 Rate Blood Pressure 142/69 O2 Sat by Pulse 91 Oximetry - Labs CBC & Chem 7: 01/28/19 05:19 01/28/19 05:19 Labs: Abnormal lab results 01/28/19 Range/Units 05: Glucose 105 H (65-100) mg/dL Albumin 3.8 L (3.9-5) g/dL
[2019-01-29] MEDS ORDERED: LEXISCAN IV ONE ×2 (08:14→08:16)
--- NOTE | 2019-01-29 10:42 | Progress Note ---
Assessment and Plan S/p lexiscan MPI stress test this AM which was negative. Currently stable cardiac status. Nothing further to add from cardiac perspective at this time. Will sign off. Recommend pt follow up in our office with Dr. Perera within 1-2 weeks of hospital discharge ([phone]). The patient has been seen in conjunction with Dr. Perera who agrees with the assessment and plan of care. - Patient Problems (1) Chest pain Current Visit: Yes Status: Acute Qualifiers: Chest pain type: unspecified Qualified Code(s): R07.9 - Chest pain, unspecified (2) Palpitations Current Visit: Yes Status: Acute (3) History of supraventricular tachycardia Current Visit: Yes Status: Chronic (4) Tobacco use Current Visit: Yes Status: Chronic Subjective Date of service: 01/29/19 Principal diagnosis: cp Interval history: pt for stress test. no current cardiac complaints. Objective Last Vital Signs Temp 98.1 F 01/29/19 04:54 Pulse 62 01/29/19 05:30 Resp 20 01/29/19 04:54 BP 125/51 01/29/19 04:54 Pulse Ox 94 01/29/19 04:54 - Physical Examination General: No Apparent Distress HEENT: Positive: PERRL, Normocephaly, Mucus Membranes Moist Neck: Positive: neck supple, trachea midline Cardiac: Positive: Reg Rate and Rhythm, S1/S2 Lungs: Positive: Decreased Breath Sounds Neuro: Positive: Grossly Intact Abdomen: Positive: Soft. Negative: Tender Skin: Negative: Rash, Wound Musculoskeletal: No Pain Extremities: Absent: edema - Imaging and Cardiology EKG: report reviewed, image reviewed Echo: pending - Telemetry EKG Rhythm: Sinus Rhythm - EKG Sinus rhythms and dysrhythmias: sinus rhythm
[2019-01-29 12:09] VITALS: BP 129/74
[2019-01-29] MEDS: CLARITIN PO SCH (12:12)
[2019-01-29] MEDS: LOVENOX SUB-Q SCH (12:12)
[2019-01-29] MEDS: SODIUM CHLORIDE FLUSH SYRINGE 10 ML IV SCH (12:13)
--- NOTE | 2019-01-29 13:37 | Discharge Summary ---
Providers - Providers Date of Admission: 01/27/19 19:43 Date of discharge: 01/29/19 Attending physician: ANDRADE GHOTRA 01/28/19 10:46 Consult to Physician [CONS] Routine Comment: Consulting Provider: MIKI MAKI Physician Instructions: Reason For Exam: chest pain [facility] Hospital[facility] Condition: Stable Hospital course: Brief History: 53-year-old female with history of gastroesophageal disease, allergy rhinitis and arthritis, status post left TKA comes in for chest pain of one-day duration. Patient was admitted for further evaluation and management. Radiological data: CTA chest IMPRESSION: No evidence for pulmonary embolus. Unremarkable CT chest with contrast. Chest x-ray IMPRESSION: Unremarkable AP chest. Lexiscan MPI test: No reversible ischemia Discharge diagnosis and management: /Atypical Chest pain admitted to rule out MA Monitored with Serial troponins Lexiscan in the morning was negative Likely due to GERD and will place patient on PPI Cardiology cleared the patient for discharge, will continue outpatient follow-up with primary care physician /Allergic rhinitis Continue Zyrtec /GERD (gastroesophageal reflux disease) Continue PPI / Arthritis Continue tramadol No NSAIDS because of Gerd / DVT prophylaxis On Lovenox and GI prophylaxis Hospitalist Physical exam: GENERAL: well-developed and morbidly obese -[place] female lying on bed appeared to be in no discomfort. HEENT: Normocephalic. Atraumatic. No conjunctival congestion or icterus. Patient has moist mucous membranes. NECK: Supple. Trachea midline. CHEST/LUNGS: Clear to auscultated bilaterally, breathing nonlabored. No wheezes crackles or rhonchi. HEART/CARDIOVASCULAR: Regular in rate and rhythm. S1 and S2 positive. ABDOMEN: Abdomen is soft, nontender. Patient has normal bowel sounds. SKIN: There is no rash. Warm and dry. NEURO: No focal motor deficit. Follows command. MUSCULOSKELETAL: No joint effusion or tenderness. EXTRIMITY: No edema, no cyanosis or clubbing. PSYCH: Cooperative. Disposition: DC-01 TO HOME OR SELFCARE Time spent for discharge: 34 minutes Core Measure Documentation - Palliative Care Palliative Care/ Comfort Measures: Not Applicable - Core Measures Any of the following diagnoses?: none Exam - Constitutional Vitals: Temp Pulse Resp BP Pulse Ox 97.9 F 76 20 129/74 94 01/29/19 12:08 01/29/19 12:08 01/29/19 04:54 01/29/19 12:08 01/29/19 04:54 Plan Activity: advance as tolerated Weight Bearing Status: Weight Bear as Tolerated Diet: low fat, low salt Follow up with: BEAU HINES MD [Primary Care Provider] - 3-5 Days NHAN REAVES MD [Staff Physician] - 7 Days Forms: Work/School Release Form Prescriptions: Pantoprazole [Protonix] 40 mg PO QDAY #30 tablet
--- NOTE | 2019-01-30 03:08 | Treadmill Report ---
NUCLEAR PERFUSION STUDY REASON FOR STUDY: Chest pain. IMAGING PROTOCOL: The patient received 10 mCi of Technetium 99m Tetrofosmin for resting image and 28 mCi of Technetium 99m Tetrofosmin for stress imaging. The imaging for the whole procedure was completed 30-90 minutes following the initial injection of Technetium 99m Tetrofosmin. The SPECT imaging in the 180 degree arc was performed in the right anterior oblique projection. Computerized reconstruction of the images was performed for analysis. IMAGING RESULTS: Normal cavity size from stress to rest. Normal distribution of radionuclide in the anterior, inferior, septal, and apical regions. Gated SPECT, EF greater than 65% with no wall motion abnormality. The patient infused Lexiscan with no EKG changes. SUMMARY: 1. Negative Lexiscan EKG. 2. Normal rest and stress myocardial perfusion scan. No significant ischemia. No wall motion abnormality. Gated SPECT, EF greater than 65%. 1. JOB# [id number] OFELIA/NILE
== END 2019-01-29 15:45 | disposition home or self-care (01) ==
LOC: ED 09:36 → 4A 19:43
PROVIDERS: ADMIT Internal Medicine; ATTEND Internal Medicine
DX: R07.89 Other chest pain (principal); J30.9 Allergic rhinitis, unspecified; K21.9 Gastro-esophageal reflux disease without esophagitis; M19.90 Unspecified osteoarthritis, unspecified site; R00.2 Palpitations; F17.210 Nicotine dependence, cigarettes, uncomplicated; Z98.890 Other specified postprocedural states; Z79.899 Other long term (current) drug therapy; Z86.79 Personal history of other diseases of the circulatory system; Z96.652 Presence of left artificial knee joint
CPT/HCPCS: 36415; 71045; 71275; 78452; 80048; 80053; 80076; 83036; 84484; 85025; 85379; 85610; 85730; 93005; 93010; 93017; 93306; 96372; 99284; A9502; G0378; J1650; J2785; Q9967

== ENCOUNTER 2019-10-01 11:22 | Emergency (ER) | payer BC, OTHER ==
[2019-10-01 11:34] VITALS: BP 149/65
--- NOTE | 2019-10-01 11:49 | Emergency Department Report ---
Blank Doc - Documentation Documentation: 53-year-old female that presents with body aches, chest congestion and SOB with cough. This initial assessment/diagnostic orders/clinical plan/treatment(s) is/are subject to change based on patient's health status, clinical progression and re- assessment by fellow clinical providers in the ED. Further treatment and workup at subsequent clinical providers discretion. Patient/guardians urged not to elope from the ED as their condition may be serious if not clinically assessed and managed. Initial orders include: 1- Patient sent to [facility] for further evaluation and treatment 2- CXR
--- NOTE | 2019-10-01 12:31 | XRay Report ---
CHEST 2 VIEWS INDICATION: cough. COMPARISON: 01/27/2019 FINDINGS: Support devices: None. Heart: Within normal limits. Lungs/pleura: No acute air space or interstitial disease. No pneumothorax. Additional findings: None. IMPRESSION: 1. No acute findings. Signer Name: Uri Bermudez MD Signed: 10/01/2019 12:26 PM Workstation Name: [id number]
--- NOTE | 2019-10-01 13:55 | Emergency Department Report ---
Minor Respiratory - HPI Chief Complaint: Upper Respiratory Infection Stated Complaint: CHEST PAIN/NOSE BLEED /BAD COUGH Time Seen by Provider: 10/01/19 11:49 Duration: 5 Days Pain Location: Chest Severity: mild Minor Respiratory: Yes Able to Tolerate Fluids, Yes Cough, No Rhinorrhea, No Sore Throat, No Ear Pain, No Sick Contacts, No Hemoptysis, No Chest Pain, No Shortness of Breath, No Fever Other History: 53 YO COMES TO ER WITH SEVERAL WEEK HX OF COUGH. NO FEVER OR CHILLS. GOT PNA AND FLU SHOT THIS YEAR. SMOKER. WORSE AT HS. DID NOT SEE PCP. HOME MEDS. METOPROLOL. [facility] ED Review of Systems ROS: Stated complaint: CHEST PAIN/NOSE BLEED /BAD COUGH Other details as noted in HPI Comment: All other systems reviewed and negative ED Past Medical Hx - Past Medical History Previous Medical History?: Yes Hx Hypertension: Yes (undiagnosed) Hx GERD: Yes Hx Arthritis: Yes Hx HIV: No - Surgical History Past Surgical History?: Yes Additional Surgical History: right knee surgery in 1993 - Family History Family history: no significant - Social History Smoking Status: Current Every Day Smoker - Medications Home Medications: Home Medications Medication Instructions Recorded Confirmed Last Taken Type Albuterol INH(or & Nicu Only) 2 puff IH QID PRN #1 inhalation 10/01/19 Unknown Rx [ProAir HFA Inhaler] Amoxicillin [Trimox CAP] 500 mg PO BID #20 capsule 10/01/19 Unknown Rx Benzonatate [Tessalon Perles] 100 mg PO Q12H PRN #20 capsule 10/01/19 Unknown Rx Fluticasone [Flonase] 1 spray NS QDAY #1 bottle 10/01/19 Unknown Rx predniSONE [Deltasone] 20 mg PO DAILY #5 tablet 10/01/19 Unknown Rx Minor Respiratory Exam - Exam General: Vital signs noted. No distress. Alert and acting appropriately. HEENT: Yes Moist Mucous Membranes, No Pharyngeal Erythema, No Pharyngeal Exudates, No Rhinorrhea, No Conjuctival Injection, No Frontal Tenderness, No Maxillary Tenderness Ear: Neither TM Bulge, Neither TM Erythema, Neither EAC Pain, Neither EAC Discharge Neck: Yes Supple, No Adenopathy Lungs: Yes Good Air Exchange, Yes Wheezes, No Ronchi, No Stridor, No Cough, No Labored Respirations, No Retractions, No Use of Accessory Muscles, No Other Abnormal Lung Sounds Heart: Yes Regular, No Murmur Abdomen: Yes Normal Bowel Sounds, No Tenderness, No Peritoneal Signs Skin: No Rash, No Edema Neurologic: Alert and oriented, no deficits. Musculoskeletal: Unremarkable. ED Course Vital Signs 10/01/19 11:26 Temperature 98.6 F Pulse Rate 94 H Respiratory 20 Rate Blood Pressure 149/65 O2 Sat by Pulse 92 Oximetry ED Medical Decision Making - Radiology Data Radiology results: report reviewed, image reviewed - Medical Decision Making URI ALSO ON LOSARTAN FOR APPROX 2 M NO FEVER GOT FLU SHOT AND PNA SHOT THIS YEAR FOLLOWS WITH CARDS ON METOP/LOSARTAN SMOKES NOW 4 CIG A DAY XRAY NEG VSS MEDICATED IN ER DC HOME WITH DC POC AND PCP FOLLOW UP Vital Signs 10/01/19 11:26 Temperature 98.6 F Pulse Rate 94 H Respiratory 20 Rate Blood Pressure 149/65 O2 Sat by Pulse 92 Oximetry - Differential Diagnosis URI Critical care attestation.: If time is entered above; I have spent that time in minutes in the direct care of this critically ill patient, excluding procedure time. ED Disposition Clinical Impression: Tobacco use, Cough, Bronchitis Disposition: DC-01 TO HOME OR SELFCARE Is pt being admited?: No Does the pt Need Aspirin: No Condition: Stable Instructions: Acute Bronchitis (ED) Additional Instructions: MEDS ORDERED TODAY FOLLOW UP WITH PCP NEXT WEEK WE DISCUSSED Prescriptions: predniSONE [Deltasone] 20 mg PO DAILY #5 tablet Fluticasone [Flonase] 1 spray NS QDAY #1 bottle Albuterol INH(or & Nicu Only) [ProAir HFA Inhaler] 2 puff IH QID PRN #1 inhalation PRN Reason: Shortness Of Breath Benzonatate [Tessalon Perles] 100 mg PO Q12H PRN #20 capsule PRN Reason: Cough Amoxicillin [Trimox CAP] 500 mg PO BID #20 capsule Referrals: IDA ELLSWORTH MD [Staff Physician] - 3-5 Days Forms: Work/School Release Form(ED) Time of Disposition: 14:05
[2019-10-01] MEDS ORDERED: predniSONE 20 MG TAB PO ONE (14:02)
[2019-10-01] MEDS ORDERED: ALBUTEROL 2.5 MG/3 ML NEBU IH ONE (14:02)
== END 2019-10-01 15:06 | disposition home or self-care (01) ==
LOC: ED 11:22
DX: J40 Bronchitis, not specified as acute or chronic (principal); I10 Essential (primary) hypertension; K21.9 Gastro-esophageal reflux disease without esophagitis; M19.90 Unspecified osteoarthritis, unspecified site; Z72.0 Tobacco use; Z79.899 Other long term (current) drug therapy
CPT/HCPCS: 71046; 94640; 99283; J7512

== ENCOUNTER 2022-02-06 15:38 | Emergency (ER) | payer BC ==
--- NOTE | 2022-02-06 16:36 | Emergency Department Report ---
<SAMUELNATALIEELIAZAR JaimesJEANNIEPACHECO IDANIA - Last Filed: 02/07/22 01:23> ED Shortness of Breath HPI - General Chief Complaint: High BP Stated Complaint: SHORTNESS OF BREATH, Time Seen by Provider: 02/06/22 15:55 - Related Data Previous Rx's Medication Instructions Recorded Last Taken Type Albuterol Mdi (or & Nicu Only) 2 puff IH QID PRN #1 inhalation 10/01/19 Unknown Rx [ProAir HFA Inhaler] Amoxicillin [Trimox CAP] 500 mg PO BID #20 capsule 10/01/19 Unknown Rx Benzonatate [Tessalon Perles] 100 mg PO Q12H PRN #20 capsule 10/01/19 Unknown Rx Fluticasone [Flonase] 1 spray NS QDAY #1 bottle 10/01/19 Unknown Rx Pantoprazole [Protonix TAB] 20 mg PO QDAY #30 tablet. 10/01/19 Unknown Rx predniSONE [Deltasone] 20 mg PO DAILY #5 tablet 10/01/19 Unknown Rx Allergies Allergy/AdvReac Type Severity Reaction Status Date / Time No Known Allergies Allergy Verified 02/06/22 15:41 ED Past Medical Hx - Medications Home Medications: Home Medications Medication Instructions Recorded Confirmed Last Taken Type Albuterol Mdi (or & Nicu Only) 2 puff IH QID PRN #1 inhalation 10/01/19 Unknown Rx [ProAir HFA Inhaler] Amoxicillin [Trimox CAP] 500 mg PO BID #20 capsule 10/01/19 Unknown Rx Benzonatate [Tessalon Perles] 100 mg PO Q12H PRN #20 capsule 10/01/19 Unknown Rx Fluticasone [Flonase] 1 spray NS QDAY #1 bottle 10/01/19 Unknown Rx Pantoprazole [Protonix TAB] 20 mg PO QDAY #30 tablet. 10/01/19 Unknown Rx predniSONE [Deltasone] 20 mg PO DAILY #5 tablet 10/01/19 Unknown Rx ED Course - Reevaluation(s) Reevaluation #1: 02/07/22 01:23 I was to follow up on CTA chest ordered due to elevated d-dimer -- but resulted with no acute findings-- negative for PE -- pt is reassured and d/c home ED Medical Decision Making - Lab Data Result diagrams: 02/06/22 16:37 02/06/22 18:28 ED Disposition Clinical Impression: SOB (shortness of breath) Disposition: 01 HOME / SELF CARE / HOMELESS Is pt being admited?: No Does the pt Need Aspirin: No Condition: Stable Instructions: Shortness of Breath, Adult, [id number] Additional Instructions: Continue your chronic medication as prescribed by your primary doctor Call and schedule follow-up with your doctor in the next 3 to 5 days for progress Please do not hesitate to call or return to emergency room if your symptoms worsen Referrals: NEHA SILVA MD [Primary Care Provider] - 3-5 Days Time of Disposition: 01:25 <MILAD FISCHER - Last Filed: 02/07/22 11:01> ED Shortness of Breath HPI - General Source: patient Mode of arrival: Wheelchair Limitations: No Limitations - History of Present Illness Initial Comments: Patient is a 56-year-old female presenting with complaint of shortness of breath and central chest discomfort. She presented to the outpatient check-in experiencing severe symptoms for which a CODE BLUE was called. Arrived to find the patient sitting in a chair awake however in severe distress. She was transported promptly to the emergency department for further evaluation. On further history she reports seeing her PCP on Sunday for bilateral sciatic pain. States after her visit she noticed swelling in both of her legs at home. She attempted to elevate her legs which did result in decreased swelling however states the swelling returned while at work today. She reports associated orthopnea and dyspnea on exertion that have worsened since Sunday. She denies history of CHF or CAD. Her chest discomfort is described as a pressure-like sensation in the center of her chest that is nonradiating and exacerbated with inhalation. ED Review of Systems ROS: Stated complaint: SHORTNESS OF BREATH, Other details as noted in HPI Comment: All other systems reviewed and negative Constitutional: denies: chills, fever Respiratory: orthopnea, shortness of breath. denies: cough, wheezing Cardiovascular: chest pain, dyspnea on exertion, edema. denies: palpitations Gastrointestinal: denies: abdominal pain, nausea, diarrhea Genitourinary: denies: urgency, dysuria, discharge Skin: denies: rash, lesions Neurological: denies: headache, weakness, paresthesias Psychiatric: denies: anxiety, depression ED Past Medical Hx - Past Medical History Hx Hypertension: Yes (undiagnosed) Hx GERD: Yes Hx Arthritis: Yes Hx HIV: No - Surgical History Additional Surgical History: right knee surgery in 1993 - Social History Smoking Status: Current Every Day Smoker ED Physical Exam - General Limitations: No Limitations General appearance: alert, in distress, obese - Head Head exam: Present: atraumatic, normocephalic - Neck Neck exam: Present: normal inspection. Absent: tenderness - Respiratory Respiratory exam: Present: respiratory distress, accessory muscle use. Absent: wheezes, rales, stridor, chest wall tenderness - Cardiovascular Cardiovascular Exam: Present: regular rate, normal rhythm, normal heart sounds - GI/Abdominal GI/Abdominal exam: Present: soft. Absent: distended, tenderness - Rectal Rectal exam: Present: deferred - Extremities Exam Extremities exam: Present: pedal edema (Trace pitting edema to both lower legs) - Neurological Exam Neurological exam: Present: alert, oriented X3, CN II-XII intact - Psychiatric Psychiatric exam: Present: normal affect, normal mood - Skin Skin exam: Present: warm, dry, intact, normal color ED Course Vital Signs 02/06/22 02/06/22 02/06/22 17:46 19:16 19:30 Temperature Pulse Rate 74 83 Respiratory 30 H 17 22 Rate Blood Pressure 166/77 153/55 Blood Pressure [Left] O2 Sat by Pulse 100 Oximetry 02/06/22 02/06/22 02/06/22 19:45 19:46 20:00 Temperature 98.3 F Pulse Rate 84 79 88 Respiratory 21 22 22 Rate Blood Pressure 143/60 124/37 Blood Pressure 143/60 [Left] O2 Sat by Pulse 94 Oximetry 02/06/22 02/06/22 02/06/22 20:16 20:30 20:46 Temperature Pulse Rate 84 80 80 Respiratory 20 16 19 Rate Blood Pressure 160/85 158/81 153/65 Blood Pressure [Left] O2 Sat by Pulse 95 Oximetry 02/06/22 02/06/22 02/06/22 21:00 21:30 21:46 Temperature Pulse Rate 80 82 84 Respiratory 25 H 25 H 19 Rate Blood Pressure 127/79 153/73 148/84 Blood Pressure [Left] O2 Sat by Pulse Oximetry 02/06/22 02/06/22 02/06/22 22:00 22:16 22:30 Temperature Pulse Rate 72 67 75 Respiratory 21 17 17 Rate Blood Pressure 137/64 140/76 161/92 Blood Pressure [Left] O2 Sat by Pulse Oximetry 02/06/22 02/06/22 02/06/22 22:46 23:00 23:06 Temperature Pulse Rate 76 77 82 Respiratory 19 18 16 Rate Blood Pressure 157/82 156/61 163/71 Blood Pressure [Left] O2 Sat by Pulse Oximetry 02/06/22 02/06/22 02/06/22 23:16 23:30 23:46 Temperature Pulse Rate 70 79 67 Respiratory 18 16 18 Rate Blood Pressure 163/71 147/92 164/99 Blood Pressure [Left] O2 Sat by Pulse Oximetry 02/07/22 02/07/22 02/07/22 00:00 00:16 00:30 Temperature Pulse Rate 100 H 65 79 Respiratory 15 19 17 Rate Blood Pressure 173/77 132/71 134/84 Blood Pressure [Left] O2 Sat by Pulse Oximetry 02/07/22 02/07/22 02/07/22 00:46 01:00 01:16 Temperature Pulse Rate 74 79 80 Respiratory 15 17 17 Rate Blood Pressure 151/70 145/79 144/69 Blood Pressure [Left] O2 Sat by Pulse Oximetry 02/07/22 01:35 Temperature Pulse Rate 82 Respiratory 18 Rate Blood Pressure Blood Pressure 146/77 [Left] O2 Sat by Pulse 95 Oximetry ED Medical Decision Making - Lab Data Result diagrams: 02/06/22 16:37 02/06/22 18:28 Critical care attestation.: If time is entered above; I have spent that time in minutes in the direct care of this critically ill patient, excluding procedure time.
[2022-02-06] MEDS ORDERED: FUROSEMIDE 40 MG/4 ML INJ IV ONE (16:38)
--- NOTE | 2022-02-06 17:01 | XRay Report ---
CHEST 1 VIEW INDICATION / CLINICAL INFORMATION: Dyspnea. COMPARISON: None available. FINDINGS: SUPPORT DEVICES: None. HEART / MEDIASTINUM: No significant abnormality. LUNGS / PLEURA: No significant pulmonary or pleural abnormality. No pneumothorax. ADDITIONAL FINDINGS: No significant additional findings. IMPRESSION: 1. No acute findings. Signer Name: Randy Gómez MD Signed: 02/06/2022 4:56 PM Workstation [facility]: [id number]
[2022-02-06 17:35] LABS: Basophils # (Auto) 0.1 K/mm3 (0.0-0.1); Eosinophils # (Auto) 0.1 K/mm3 (0.0-0.4); Eosinophils % (Auto) 1.1 % (0.0-4.3); Hematocrit 35.6 % (30.3-42.9); Hemoglobin 11.2 gm/dl (10.1-14.3); Lymphocytes # (Auto) 2.7 K/mm3 (1.2-5.4); Lymphocytes % (Auto) 23.1 % (13.4-35.0); Mean Corpuscular HGB Conc 32 % (30-34); Mean Corpuscular Volume 89 fl (79-97); Monocytes # (Auto) 0.7 K/mm3 (0.0-0.8); Monocytes % (Auto) 6.1 % (0.0-7.3); Platelet Count 277 K/mm3 (140-440)
[2022-02-06 19:09] LABS: Alanine Aminotransferase 16 units/L (7-56); Blood Urea Nitrogen 14 mg/dL (7-17); Calcium 9.1 mg/dL (8.4-10.2); Hemolysis Index 6
[2022-02-06 19:12] LABS: BUN/Creatinine Ratio 20
--- NOTE | 2022-02-06 21:54 | Cat Scan Report ---
CTA CHEST WITH CONTRAST INDICATION / CLINICAL INFORMATION: Chest pain, elevated D-dimer. TECHNIQUE: Axial CT images were obtained through the chest after injection of 100 cc Omnipaque 350 IV contrast. 3 plane MIP and/or 3D reconstructions were produced. All CT scans at this location are per formed using CT dose reduction for ALARA by means of automated exposure control. COMPARISON: One view of the chest performed earlier today. CTA chest from 02/13/2019. FINDINGS: PULMONARY EMBOLUS: There is suboptimal opacification of the pulmonary arteries. No central pulmonary emboli are clearly visualized. THORACIC AORTA: No significant abnormality. HEART: No significant abnormality. CORONARY ARTERY CALCIFICATION: Absent -- None. MEDIASTINUM / WALLY: Shotty mediastinal nodes are present. No other significant abnormality. PLEURA: No pleural effusion. No pneumothorax. LUNGS: No acute air space or interstitial disease. ADDITIONAL FINDINGS: None. UPPER ABDOMEN: No acute findings. SKELETAL STRUCTURES: No significant osseous abnormality. IMPRESSION: 1. Suboptimal opacification of the pulmonary arteries without clear visualization of central pulmonar y emboli. 2. No acute findings. Signer Name: Jm Armijo MD Signed: 02/06/2022 9:50 PM Workstation Name: [id number]
[2022-02-07 02:01] VITALS: BP 146/77
== END 2022-02-07 01:35 | disposition home or self-care (01) ==
LOC: ED 15:38
DX: R06.02 Shortness of breath (principal); K21.9 Gastro-esophageal reflux disease without esophagitis; M19.90 Unspecified osteoarthritis, unspecified site; F17.200 Nicotine dependence, unspecified, uncomplicated; Z79.899 Other long term (current) drug therapy
CPT/HCPCS: 36415; 71045; 71275; 80053; 83880; 84484; 85025; 85379; 99284; J1940; Q9967; 93005